=== PATIENT | male | born 1980 | race Caucasian/White ===

== ENCOUNTER → 2017-12-30 | Outpatient (CLI) | payer OTHER | LOC: COL.RAD 17:32 | DX: M79.661 Pain in right lower leg (principal); R22.41 Localized swelling, mass and lump, right lower limb; Z87.39 Personal history of other diseases of the musculoskeletal system and connective tissue ==

== ENCOUNTER 2022-01-25 00:29 | Emergency (ER) | payer SELFPAY ==
[~2022-01-25] VITALS: Ht 177.8 cm; Wt 70.5 kg
[2022-01-25 00:42] VITALS: TEMP 98.2
[2022-01-25] MEDS ORDERED: BACTRIM DS 8001 TAB PO (01:57)
[2022-01-25 02:14] VITALS: BP 123/78; PULSE 59
== END 2022-01-25 02:14 | disposition home or self-care (01) ==
LOC: COL.ER 00:29
DX: L03.115 Cellulitis of right lower limb (principal); Z28.310 Unvaccinated for COVID-19